=== PATIENT | male | born 2000 | race Caucasian/White ===

== ENCOUNTER 2021-03-16 01:46 | Emergency (ER) | payer MEDICAID ==
[~2021-03-16] VITALS: Ht 182.9 cm; Wt 61.4 kg
[~2021-03-16 01:46] MED LIST: METH54TA4 PO
--- NOTE | 2021-03-16 02:51 | NUR ---
On hold with poison control for 15 minutes. Hung up
--- NOTE | 2021-03-16 04:17 | NUR ---
Quincy rodarte in [facility] - 03/16/21 at 0554 by [employer] CALLING BACK. REFERENCE #[id number].
--- NOTE | 2021-03-16 05:38 | NUR ---
pts labs drawn. pt is sleeping deeply,miminal movement with lab draw. mother is at bedside. states pt with multiple attempts to overdose in the past. mother states pt always states once he has done it that it was just to get high and not to end his life. she states he is unstable and unsafe and will harm himself. i updated her that the pt has been placed on a mental health hold.
[2021-03-16 05:49] LABS: BASOPHILS % (AUTO) 0.5 % (0-1); EOSINOPHILS # (AUTO) 0.2 X10'3 (0-0.9); EOSINOPHILS % (AUTO) 2.6 % (0-6); HEMATOCRIT 44.6 % (42.0-52.0); HEMOGLOBIN 14.9 g/dl (14.0-17.9); LYMPHOCYTES # (AUTO) 2.9 X10'3 (1.1-4.8); LYMPHOCYTES % (AUTO) 35.7 % (21-51); MEAN CORPUSCULAR HEMOGLOBIN 30.3 PG (27.0-31.0); MEAN CORPUSCULAR HGB CONC 33.3 g/dL (33.0-36.5); MEAN CORPUSCULAR VOLUME 90.9 FL (78-98); MEAN PLATELET VOLUME 8.7 FL (7.4-10.4); MONOCYTES # (AUTO) 0.8 X10'3 (0-0.9); MONOCYTES % (AUTO) 10.1 % (2-12); NEUTROPHILS # (AUTO) 4.1 X10'3 (1.8-7.7); NEUTROPHILS % (AUTO) 51.1 % (42-75); PLATELET COUNT 245 X10'3 (140-440); RED BLOOD COUNT 4.91 X10'6 (4.70-6.10); RED CELL DISTRIBUTION WIDTH 13.6 % (11.5-14.5)
[2021-03-16 05:59] LABS: ALANINE AMINOTRANSFERASE 43 U/L (12-78); ALBUMIN 3.5 G/DL (3.4-5.0); ALBUMIN/GLOBULIN RATIO 1.1 (1.1-1.5); ALKALINE PHOSPHATASE 94 IU/L (20-180); ANION GAP 6 (8-16); ASPARTATE AMINO TRANSFERASE 16 U/L (10-37); BILIRUBIN,TOTAL 0.4 MG/DL (0.1-1.0); BLOOD UREA NITROGEN 14 MG/DL (7-18); BUN/CREATININE RATIO 19.7 (5.4-32.0); CALCIUM 9.2 MG/DL (8.5-10.1); CHLORIDE 105 MMOL/L (99-107); CREATININE 0.71 MG/DL (0.60-1.10); GLUCOSE 97 MG/DL (70-104); POTASSIUM 3.7 MMOL/L (3.5-5.1); SODIUM 142 MMOL/L (135-145); TOTAL PROTEIN 6.8 G/DL (6.4-8.2); eGFR > 90 ML/MIN
[2021-03-16 06:08] LABS: ETHANOL < 0.010 GM/DL (0.0-0.010)
[2021-03-16 06:09] LABS: ACETAMINOPHEN < 2.0 UG/ML (10-30)
--- NOTE | 2021-03-16 06:45 | NUR ---
pt woke up and stated whats going on. explained he is in the emergency room for his overdose. pt stated "fuck that im leaving" explained im not going to bother him if he wants to sleep and he laid back in the bed with blanket over self and fell ack asleep.
[2021-03-16] MEDS ORDERED: haloperidol lactate 5mg/ml inj IM ONE (07:45)
[2021-03-16] MEDS ORDERED: diphenhydrAMINE 50 mg/ml inj IV ONE (07:45)
[2021-03-16] MEDS ORDERED: LORazepam 2 mg/ml vial IM ONE (07:45)
--- NOTE | 2021-03-16 07:50 | NUR ---
pt woke up aggressive in room, jumping up demanding to leave. pt made aggressive movements to security and cursing at staff. demanded hes leaving now! haldol and benadryl im given to pt. pt still aggressive, pt placed in restraints.
[2021-03-16 08:17] LABS: URINE AMPHETAMINE SCREEN NEGATIVE (Neg); URINE BARBITUATE SCREEN NEGATIVE (Neg); URINE BENZODIAZEPINES SCREEN POSITIVE (Neg); URINE CANNABINOID SCREEN POSITIVE (Neg); URINE COCAINE SCREEN POSITIVE (Neg); URINE METHADONE SCREEN NEGATIVE (Neg); URINE OPIATE SCREEN NEGATIVE (Neg); URINE PHENCYCLIDINE SCREEN NEGATIVE (Neg)
[2021-03-16 08:34] LABS: CLARITY,URINE CLEAR (Clear); COLOR,URINE YELLOW (Yellow); GLUCOSE, URINE NEGATIVE (Neg); KETONES,URINE NEGATIVE (Neg); LEUKOCYTE ESTERASE ,URINE NEGATIVE (Neg); OCCULT BLOOD,URINE NEGATIVE (Neg); PROTEIN,URINE NEGATIVE (Neg); UROBILINOGEN,URINE 0.2 E.U/dL (0.2-1.0)
--- NOTE | 2021-03-16 08:34 | NUR ---
pt sleeping, restraints removed, will continue to monitor. Addendum: 03/16/21 at 0835 by JOCELYN note by enid
[2021-03-16 08:35] LABS: UA COLLECTION TYPE CLN CATCH MIDSTREAM
[2021-03-16 08:41] LABS: BACTERIA,URINE FEW /HPF (Neg); RBC,URINE 0-2 /HPF (0-2); SQUAMOUS EPITHELIAL CELL,UR FEW /LPF (FEW); WBC,URINE 0-4 /HPF (0-4)
[2021-03-16 08:43] LABS: NITRITES, URINE NEGATIVE (Neg)
--- NOTE | 2021-03-16 08:52 | NUR ---
green blanket given to pt.
--- NOTE | 2021-03-16 09:28 | NUR ---
ASSESSED PATIENT IN ER OVERFLOW BED 25 WHO WAS BROUGHT OVER BY JEWEL RN PHIL. PATIENT IS EXTREMELY DIFFICULT TO WAKE UP: STERNAL RUBBED. WITH REPEATED QUESTIONING, PATIENT WAS ABLE TO MUMBLE HIS NAME AND AND DID NOT ANSWER ANY OTHER QUESTIONS. PATIENT LYING ON RIGHT SIDE AND WOULD NOT MOVE DESPITE REPEATED REQUESTS. I ROLLED PATIENT OVER TO HIS BACK, SUPINE AND HIS BODY WAS LIKE JELLO. HIS PUPILS ARE VERY SLUGGISH AND HE BARELY HAS A STARTLE REFLEX. PATIENT VITAL SIGNS TAKEN AND PATIENT PLACED ON [employer], SPO2, BP: SR/SB WITH LOWEST HR NOTED 42, 65 AT THIS MOMENT, PALPABLE BILATERAL RADIAL PULSES, ON RA RR EVEN AND UNLABORED, VERY SHALLOW 16, SPO2 96% BP 109/57. PATIENT HAS BLANCHEABLE , BUT REDDENED SKIN ON RIGHT ARM, RIGHT SIDE AND RIGHT LEG. PATIENT PLACED ON BACK SUPINE HOB AT 30 DEGREES. POISON CONTROL TO BE CONTACTED.
--- NOTE | 2021-03-16 10:17 | NUR ---
POISON CONTROL CALLED
--- NOTE | 2021-03-16 10:18 | NUR ---
POISON CONTROL: SPOKE TO DAVI: CURRENT RECOMMENDATION: MONITOR AIRWAY, MONITOR CARDIAC RYTHMN, BP, RR SPO2 WITH Q 1 HOUR VITALS. ALSO RECOMMENDED DRAWING A LAB: CPK
--- NOTE | 2021-03-16 10:36 | NUR ---
[facility] TO SEE IF ABLE TO ADD CPK, LAB WILL CALL BACK IF UNABLE TO ADD TO PREVIOUS LABS
[2021-03-16] MEDS ORDERED: normal saline 1000ML IV soln IVB ONE (10:50)
--- NOTE | 2021-03-16 10:51 | NUR ---
DISCUSSED PATIENT'S STATUS WITH DR MALAGON INCLUDING VITALS. PER CHART NO INTAKE OR OUTPUT. ORDERS RECEIVED FOR FLUID AND TO PLACE PIV AND MONITOR CARDIAC RYTHMN, BP SPO2 PER POISON CONTROL. UPDATED MARBLEIZING MACHINE TENDERPRICILA GARCIA TO MONITOR AND LEAVE IN ER OVERFLOW. I AM ABLE TO VISUALIZE MONITOR FROM NURSES STATION AND PATIENT IS LINE OF SIGHT OF [employer].
[2021-03-16 10:52] LABS: CREATINE KINASE 63 U/L (39-308)
--- NOTE | 2021-03-16 11:15 | NUR ---
PATIENT DID NOT FLINCH WHEN IV STARTED TO LEFT UOOER ARM 20 GAUGE WITH GOOD BLOOD RETURN, 1 L NS HUNG. IV SITE LOOSELY WRAPPED IN COBAN TO PROTECT SITE
--- NOTE | 2021-03-16 12:45 | NUR ---
PATIENT SPONTANEOUSLY GOT OUT OF BED : VERY WOBBLY ON FEET, MUMBLING TO SELF UNINTELLIGBLE WORDS, ASSISTED WITH TECH BACK TO BED AND PATIENT LAID ON HIS RIGHT SIDE AND FELL ASLEEP.
--- NOTE | 2021-03-16 13:15 | NUR ---
PATIENT OFFERED MEAL: REGULAR DIET, REFUSED
--- NOTE | 2021-03-16 14:30 | NUR ---
MOTHER JB BARTON [phone], RETURNED PHONE CALL. PER MOTHER: PATIENT WAS AT [facility] IN [place] AND LEFT 1 WEEK AGO AND HAS BEEN COUCH SURFING AND USING STREET DRUGS INCLUDING XANAX. PATIENT HAS AN ON AGAIN /OFF AGAIN RELATIONSHIP WITH HIS GIRLFRIEND GEORGE ELKINS. PER MOTHER, PATIENT TOLD GEORGE ELKINS THAT "LIFE IS TOO HARD" AND OTHER ALLEGEDLY SUICIDAL IDEATIONS. GIRLFRIEND CALLED PATIENT'S AUNT WHO BROUGHT HIM HERE. PER MOTHER PATIENT IS WORKING WITH [facility] TO GET INTO a "PROGRAM" FOR HIS MENTAL HEALTH ISSUES OF DEPRESSION, ANXIETY, ADHD, AND ON THE [employer]. HIS MOTHER DOES NOT KNOW THE NAME OF THE PROVIDER AT [facility]. MOTHER REPORTS THAT 2 YEARS AGO HER SON OVERDOSED ON XANAX AND HE WAS OUT OF CONTROL MANIC IN THE STREETS AFTER SLEEPING FOR A PERIOD OF TIME.
--- NOTE | 2021-03-16 14:31 | NUR ---
PATIENT'S MOTHER IS WILLING TO TAKE PATIENT TO HER HOME IF DISCHARGED FROM THE ER
--- NOTE | 2021-03-16 14:33 | NUR ---
PATIENT LYING ON BACK RR EVEN AND UNLABORED,SHALLOW, CONTINUES ON MONITOR AND WILL CONTINUE TO MONITOR
--- NOTE | 2021-03-16 14:51 | NUR ---
PATIENT JUST SAT UP AND STARTED EATING HIS FOOD. AVRIL TAYLOR ASSITED PATIENT WITH USING HIS URINAL. 200 ML URINE OUT CLEAR DARK YELLOW SPILLED SOME TECH ASSISTED WITH PERICARE AND NEW GREEN SCRUBS PUT ON. UNDERWEAR REMOVED, PLACED IN LABELED BAG, AND AVRIL TAYLOR PLACED BAG WITH HIS OTHER BELONGINGS.
--- NOTE | 2021-03-16 15:12 | NUR ---
Pt woke up asking for his "bitch" I asked him who that was? He stated that it was his girlfiriend. I told him we do not refer to women that way. I he started yelling that we was leaving and that he wanted to get high and that was it.
--- NOTE | 2021-03-16 15:33 | NUR ---
Pt was verbally abusive to nurse, calling her a "nigga" and he would "fuck" her and security up. He is from [place] and he isn't scared of anything. He stated again he just wants to leave to see his "kid" and he only took pills to get high. He then went into bathroom slammed door and toilet seat down. Got in nurses face but then went and sat on bed. He is currently talking to himself on his bed with security at standby
--- NOTE | 2021-03-16 15:56 | NUR ---
note that patient has a rigth upper arm sl, not a left PATIETN CURRENTLY LYING IN BED WITH EYES CLOSED, RR EVEN AND UNLABORED, DEPTH WNL
--- NOTE | 2021-03-16 16:30 | NUR ---
PATIENT LYING ON HIS RIGHT SIDE WITH EYES CLOSED RR BRADEN, UNLABORED AND NORMAL DEPTH. SPOKE AGAIN IN PERSON WITH [facility] REGARDING DISCHARGE PLAN. PATIENT RIPPED OFF ALL MONITORING EARLIER AND REFUSED TO HAVE IT REPLACED.
--- NOTE | 2021-03-16 16:56 | NUR ---
CALLED MOTHER AND LEFT MESSAGE. MOTHER CALLED RIGHT BACK. I HANDED THE PHONE TO AXEL [facility]. PRIOR TO CALLING MOTHER, AXEL AND I TALKED WITH PATIENT
--- NOTE | 2021-03-16 16:58 | NUR ---
WITH [facility], PATIENT DENIED SI/HI TOOK THE STREET DRUGS TO "GET HIGH"
--- NOTE | 2021-03-16 17:05 | NUR ---
POISON CONTROL: SPOKE TO DAVI FROM POISON CONTROL. OK TO DISCONTIUNE MONITORING FROM POISON CONTROL'S PERSPECTIVE SINCE PATIENT HAS PERKED UP. INFORMED DAVI THAT THE XANAX THE PATIENT INGESTED WAS "STREET" XNANX AND THAT NO NARCAN WAS GIVEN PER MY KNOWLEDGE
--- NOTE | 2021-03-16 18:15 | NUR ---
STILL AWAITING WORD FROM [facility] WHETHER NEW HOLD IS BEING PLACED OR NOT
--- NOTE | 2021-03-16 19:00 | NUR ---
Received pt sleeping in bed without signs of distress. Pt unarrousable for dinner.
--- NOTE | 2021-03-16 21:00 | NUR ---
Pt just awoke and came to nurse's station to ask for the phone and now is being evaluated by [facility] and is getting a little irritated.
--- NOTE | 2021-03-16 23:00 | NUR ---
Pt called his mother and was demanding for her to pick him up, seemingly not understanding the circumstances. Pt began cursing and getting loud. Security arrived and expectations explained to the pt. Pt was able to calm down and currently is sleeping without signs of distress.
--- NOTE | 2021-03-17 01:00 | NUR ---
Pt sleeping calmly without signs of distress.
--- NOTE | 2021-03-17 03:00 | NUR ---
Pt asleep in bed without signs of distress.
--- NOTE | 2021-03-17 05:00 | NUR ---
Pt asleep in bed without signs of distress.
--- NOTE | 2021-03-17 05:47 | NUR ---
PT REFUSED VITALS AT THIS TIME
--- NOTE | 2021-03-17 06:30 | NUR ---
Pt sleeping on back. Respirations unlabored. NAD
--- NOTE | 2021-03-17 07:30 | NUR ---
Pt sleeping. Respirations unlabored. NAD
--- NOTE | 2021-03-17 08:27 | NUR ---
Anand from [facility] at pt's bedside assessing pt.
[2021-03-17 08:45] VITALS: BP 124/65
--- NOTE | 2021-03-17 08:53 | NUR ---
Anand from [facility] is releasing the pt with a safety plan. Pt is calling for a ride.
== END 2021-03-17 09:23 | disposition home or self-care (01) ==
LOC: ER 01:46
DX: R45.851 Suicidal ideations (principal); F19.10 Other psychoactive substance abuse, uncomplicated; F12.90 Cannabis use, unspecified, uncomplicated; Z79.899 Other long term (current) drug therapy
CPT/HCPCS: 36415; 80053; 80305; 80320; 80329; 81001; 82550; 84439; 84443; 85025; 96361; 96372; 96374; 99285; J1200; J1630; J7030

== ENCOUNTER 2025-01-30 07:44 | Emergency (ER) | payer MEDICAID ==
[~2025-01-30] VITALS: Ht 182.9 cm; Wt 62.0 kg
[2025-01-30 07:47] VITALS: BP 140/77; PULSE 150; TEMP 102.8; O2SAT 96
[2025-01-30] MEDS: ketorolac trometh 15mg/ml vial 15 MG/ML ML IM ONE (08:52)
[2025-01-30] MEDS: acetaminophen 325mg tablet PO ONE (08:52)
[2025-01-30 09:03] LABS: BASOPHILS % (AUTO) 0.3 % (0-1); EOSINOPHILS # (AUTO) 0.1 X10'3 (0-0.9); EOSINOPHILS % (AUTO) 0.4 % (0-6); HEMATOCRIT 36.5 % (42.0-52.0); HEMOGLOBIN 12.3 g/dl (14.0-17.9); LYMPHOCYTES # (AUTO) 0.9 X10'3 (1.1-4.8); LYMPHOCYTES % (AUTO) 5.4 % (21-51); MEAN CORPUSCULAR HEMOGLOBIN 28.3 PG (27.0-31.0); MEAN CORPUSCULAR HGB CONC 33.7 g/dL (33.0-36.5); MEAN CORPUSCULAR VOLUME 83.8 FL (78-98); MEAN PLATELET VOLUME 8.6 FL (7.4-10.4); MONOCYTES # (AUTO) 1.9 X10'3 (0-0.9); MONOCYTES % (AUTO) 11.5 % (2-12); NEUTROPHILS # (AUTO) 13.6 X10'3 (1.8-7.7); NEUTROPHILS % (AUTO) 82.4 % (42-75); PLATELET COUNT 300 X10'3 (140-440); RED BLOOD COUNT 4.36 X10'6 (4.70-6.10); RED CELL DISTRIBUTION WIDTH 13.7 % (11.5-14.5); WHITE BLOOD COUNT 16.5 X10'3 (4.5-11.0)
[2025-01-30 09:12] LABS: ALBUMIN 3.1 G/DL (3.4-5.0); ANION GAP 8 (8-16); BLOOD UREA NITROGEN 16 MG/DL (7-18); BUN/CREATININE RATIO 21.6 (10.0-20.0); CALCIUM 8.9 MG/DL (8.5-10.1); CHLORIDE 96 MMOL/L (99-107); CREATININE 0.74 MG/DL (0.60-1.10); GLUCOSE 103 MG/DL (70-104); POTASSIUM 3.8 MMOL/L (3.5-5.1); SODIUM 133 MMOL/L (135-145); TOTAL CARBON DIOXIDE 29.5 MMOL/L (24-32); eCRCL 135 ML/MIN; eGFR > 90 ML/MIN
[2025-01-30] MEDS ORDERED: amox tr/potassium clavulanate 875/125mg TAB PO ONE (09:25)
[2025-01-30] MEDS: CefTRIAXone 2gm/D5W 50ml BAG 50 ML IV ONE (09:25)
[2025-01-30] MEDS ORDERED: DOXY100C43 PO (09:27)
[2025-01-30] MEDS ORDERED: AMOX-580 PO (09:27)
[2025-01-30] MEDS: amox tr/potassium clavulanate 875/125mg TAB PO ONE (09:38)
[2025-01-30] MEDS: DOXYCYCLINE 100MG CAPSULE PO STA (09:38)
== END 2025-01-30 09:42 | disposition home or self-care (01) ==
LOC: ER 07:44
DX: J18.9 Pneumonia, unspecified organism (principal); F12.90 Cannabis use, unspecified, uncomplicated; F15.90 Other stimulant use, unspecified, uncomplicated; Z79.2 Long term (current) use of antibiotics; Z79.899 Other long term (current) drug therapy
CPT/HCPCS: 36415; 71045; 80048; 84145; 85025; 87502; 87503; 99284; J1885

== ENCOUNTER 2025-02-01 09:43 | Emergency (ER) | payer MEDICAID ==
[~2025-02-01] VITALS: Ht 185.4 cm; Wt 61.4 kg
[~2025-02-01 09:43] MED LIST changes: +AMOX-580 PO; +DOXY100C43 PO
[2025-02-01 11:37] VITALS: BP 113/65; PULSE 72; O2SAT 98
[2025-02-01 12:00] VITALS: RESP 18
[2025-02-01 13:00] VITALS: TEMP 98.5
== END 2025-02-01 13:04 | disposition left against medical advice (07) ==
LOC: ER 09:43
DX: J18.9 Pneumonia, unspecified organism (principal); F12.90 Cannabis use, unspecified, uncomplicated; F15.90 Other stimulant use, unspecified, uncomplicated; F19.90 Other psychoactive substance use, unspecified, uncomplicated; Z79.899 Other long term (current) drug therapy
CPT/HCPCS: 99281

== ENCOUNTER 2025-02-01 18:51 | Inpatient (IN) | payer MEDICAID ==
[~2025-02-01] VITALS: Ht 185.4 cm; Wt 63.6 kg
[2025-02-01 19:57] LABS: BASOPHILS % (AUTO) 0.3 % (0-1); EOSINOPHILS # (AUTO) 0.5 X10'3 (0-0.9); HEMATOCRIT 36.1 % (42.0-52.0); HEMOGLOBIN 12.1 g/dl (14.0-17.9); LYMPHOCYTES # (AUTO) 1.7 X10'3 (1.1-4.8); LYMPHOCYTES % (AUTO) 18.3 % (21-51); MEAN CORPUSCULAR HEMOGLOBIN 28.4 PG (27.0-31.0); MEAN CORPUSCULAR HGB CONC 33.5 g/dL (33.0-36.5); MEAN CORPUSCULAR VOLUME 84.8 FL (78-98); MEAN PLATELET VOLUME 8.1 FL (7.4-10.4); MONOCYTES # (AUTO) 0.8 X10'3 (0-0.9); NEUTROPHILS # (AUTO) 6.3 X10'3 (1.8-7.7); NEUTROPHILS % (AUTO) 67.4 % (42-75); PLATELET COUNT 381 X10'3 (140-440); RED BLOOD COUNT 4.26 X10'6 (4.70-6.10); RED CELL DISTRIBUTION WIDTH 14.2 % (11.5-14.5); WHITE BLOOD COUNT 9.4 X10'3 (4.5-11.0)
[2025-02-01 20:17] LABS: ALBUMIN 2.5 G/DL (3.4-5.0); ANION GAP 7 (8-16); BLOOD UREA NITROGEN 6 MG/DL (7-18); BUN/CREATININE RATIO 11.1 (10.0-20.0); CALCIUM 8.7 MG/DL (8.5-10.1); CHLORIDE 102 MMOL/L (99-107); CREATININE 0.54 MG/DL (0.60-1.10); GLUCOSE 91 MG/DL (70-104); POTASSIUM 3.8 MMOL/L (3.5-5.1); PRO BRAIN NATRIURETIC PEPTIDE 387 PG/ML (0-125); SODIUM 142 MMOL/L (135-145); TOTAL CARBON DIOXIDE 33.1 MMOL/L (24-32); eCRCL 190 ML/MIN; eGFR > 90 ML/MIN
[2025-02-01] MEDS: normal saline 1000ML IV soln IVB ONE (21:36)
[2025-02-01] MEDS: acetaminophen 325mg tablet PO ONE (21:41)
[2025-02-01] MEDS: HYDROmorphone 1 mg/ml syringe IV ONE (22:00)
[2025-02-01 22:10] LABS: C-REACTIVE PROTEIN 20.63 MG/DL (0.0-0.5)
[2025-02-01] MEDS: ketorolac trometh 15mg/ml vial 15 MG/ML ML IV ONE (22:14)
[2025-02-01] MEDS: CefTRIAXone 2gm/D5W 50ml BAG 50 ML IV ONE (22:15)
[2025-02-01] MEDS: levoFLOXACIN-Levaquin 750MG/D5 150 ML IV ONE (22:17)
[2025-02-01] MEDS: LORazepam 2 mg/ml vial IV ONE (22:22)
[2025-02-01 22:31] LABS: HIV ANTIBODY 1&2 RAPID NON-REACTIVE (Neg)
[2025-02-02] VITALS (9 sets, daily range): BP systolic 104–122; BP diastolic 57–76; PULSE 75–96; RESP 16–22; TEMP 97.7–98.9; O2SAT 96–99
[2025-02-02] MEDS ORDERED: magnesium sulf-water 2g/50mL 50 ML IV PRN (03:15)
[2025-02-02] MEDS ORDERED: mag hydrox/Alum hydrox/simeth 30ml oral suspension PO PRN (03:15)
[2025-02-02] MEDS ORDERED: magnesium sulf-water 4G/100mL 100 ML IV PRN (03:15)
[2025-02-02] MEDS ORDERED: potassium Cl 40MEQ/1/2NS 520ml 520 ML IV PRN (03:15)
[2025-02-02] MEDS ORDERED: potassium Cl 20 mEq SR tablet PO PRN ×2 (03:15)
[2025-02-02] MEDS ORDERED: magnesium hydroxide 30ml (MOM) UD suspension PO PRN (03:15)
[2025-02-02] MEDS ORDERED: magnesium Cl slow-release 64mg tablet PO PRN (03:15)
[2025-02-02] MEDS: normal saline 1000ml 1,000 ML IV SCH (04:57)
[2025-02-02] MEDS: acetaminophen 325mg tablet PO PRN (04:57)
[2025-02-02] MEDS ORDERED: ipratropium/albuterol 3ml nebule NEB PRN (06:20)
[2025-02-02] MEDS: docusate sod 100mg capsule PO SCH (08:00)
[2025-02-02] MEDS: K and/or MAG REPLACEMENT MC SCH (08:00)
[2025-02-02 09:32] LABS: BASOPHILS # (AUTO) 0.1 X10'3 (0-0.2); BASOPHILS % (AUTO) 0.7 % (0-1); EOSINOPHILS # (AUTO) 0.5 X10'3 (0-0.9); HEMATOCRIT 34.3 % (42.0-52.0); HEMOGLOBIN 11.4 g/dl (14.0-17.9); LYMPHOCYTES # (AUTO) 1.6 X10'3 (1.1-4.8); LYMPHOCYTES % (AUTO) 21.8 % (21-51); MEAN CORPUSCULAR HEMOGLOBIN 28.2 PG (27.0-31.0); MEAN CORPUSCULAR HGB CONC 33.3 g/dL (33.0-36.5); MEAN CORPUSCULAR VOLUME 84.9 FL (78-98); MEAN PLATELET VOLUME 8.4 FL (7.4-10.4); MONOCYTES # (AUTO) 0.7 X10'3 (0-0.9); MONOCYTES % (AUTO) 9.4 % (2-12); NEUTROPHILS # (AUTO) 4.4 X10'3 (1.8-7.7); NEUTROPHILS % (AUTO) 61.1 % (42-75); PLATELET COUNT 371 X10'3 (140-440); RED BLOOD COUNT 4.04 X10'6 (4.70-6.10); RED CELL DISTRIBUTION WIDTH 14.7 % (11.5-14.5); WHITE BLOOD COUNT 7.2 X10'3 (4.5-11.0)
[2025-02-02 09:53] LABS: ALANINE AMINOTRANSFERASE 30 U/L (12-78); ALBUMIN/GLOBULIN RATIO 0.4 (1.1-1.5); ALKALINE PHOSPHATASE 97 IU/L (46-116); ANION GAP 7 (8-16); ASPARTATE AMINO TRANSFERASE 20 U/L (10-37); BILIRUBIN,TOTAL 0.3 MG/DL (0.1-1.0); BLOOD UREA NITROGEN 10 MG/DL (7-18); BUN/CREATININE RATIO 14.9 (10.0-20.0); CALCIUM 8.5 MG/DL (8.5-10.1); CHLORIDE 105 MMOL/L (99-107); CREATININE 0.67 MG/DL (0.60-1.10); GLUCOSE 99 MG/DL (70-104); POTASSIUM 3.8 MMOL/L (3.5-5.1); SODIUM 140 MMOL/L (135-145); TOTAL CARBON DIOXIDE 28.1 MMOL/L (24-32); TOTAL PROTEIN 6.5 G/DL (6.4-8.2); eCRCL 153 ML/MIN; eGFR > 90 ML/MIN
[2025-02-02] MEDS ORDERED: morphine 2 MG/ML inj. syringe IV PRN (10:20)
[2025-02-02] MEDS: methylPREDNISolone sod succ 125mg/2ml vial IV SCH (10:22)
[2025-02-02] MEDS: CefTRIAXone/D5W-Rocephin 1gm 50 ML IV SCH (10:22)
[2025-02-02] MEDS: azithromycin/NS 500mg/250ml 250 ML IV SCH (10:23)
[2025-02-02] MEDS: morphine 2 MG/ML inj. syringe IV PRN (10:28)
[2025-02-02] MEDS: morphine 2 MG/ML inj. syringe IV STA (12:33)
[2025-02-02 13:31] LABS: BILIRUBIN,URINE NEGATIVE (Neg); CLARITY,URINE CLEAR (Clear); COLOR,URINE STRAW (Yellow); GLUCOSE, URINE NEGATIVE (Neg); KETONES,URINE NEGATIVE (Neg); LEUKOCYTE ESTERASE ,URINE NEGATIVE (Neg); NITRITES, URINE NEGATIVE (Neg); OCCULT BLOOD,URINE NEGATIVE (Neg); PROTEIN,URINE NEGATIVE (Neg); UROBILINOGEN,URINE 0.2 E.U/dL (0.2-1.0)
[2025-02-02 13:34] LABS: UA COLLECTION TYPE NON-SPECIFIED
[2025-02-02 13:43] LABS: URINE AMPHETAMINE SCREEN NEGATIVE (Neg); URINE BARBITUATE SCREEN NEGATIVE (Neg); URINE BENZODIAZEPINES SCREEN NEGATIVE (Neg); URINE CANNABINOID SCREEN POSITIVE (Neg); URINE COCAINE SCREEN NEGATIVE (Neg); URINE METHADONE SCREEN NEGATIVE (Neg); URINE OPIATE SCREEN POSITIVE (Neg); URINE PHENCYCLIDINE SCREEN NEGATIVE (Neg)
[2025-02-02] MEDS: nicotine 21mg patch - 24 hr TD SCH (14:13)
[2025-02-02] MEDS: LORazepam 1 MG tablet PO PRN (17:18)
[2025-02-02] MEDS: heparin, porcine 5000 units/ml vial SQ SCH (19:24)
[2025-02-03] MEDS ORDERED: naloxone 0.4 mg/ml inj IV PRN (01:50)
[2025-02-03 06:00] VITALS: BP 121/74; PULSE 83; RESP 16; TEMP 97.6; O2SAT 98
[2025-02-03 08:00] VITALS: RESP 16; O2SAT 98
[2025-02-03 08:42] LABS: BASOPHILS # (AUTO) 0.1 X10'3 (0-0.2); BASOPHILS % (AUTO) 0.6 % (0-1); EOSINOPHILS % (AUTO) 0.2 % (0-6); HEMATOCRIT 34.1 % (42.0-52.0); HEMOGLOBIN 11.4 g/dl (14.0-17.9); LYMPHOCYTES # (AUTO) 1.5 X10'3 (1.1-4.8); LYMPHOCYTES % (AUTO) 14.2 % (21-51); MEAN CORPUSCULAR HEMOGLOBIN 28.4 PG (27.0-31.0); MEAN CORPUSCULAR HGB CONC 33.5 g/dL (33.0-36.5); MEAN CORPUSCULAR VOLUME 84.6 FL (78-98); MEAN PLATELET VOLUME 7.8 FL (7.4-10.4); MONOCYTES # (AUTO) 0.9 X10'3 (0-0.9); NEUTROPHILS # (AUTO) 8.4 X10'3 (1.8-7.7); PLATELET COUNT 461 X10'3 (140-440); RED BLOOD COUNT 4.04 X10'6 (4.70-6.10); RED CELL DISTRIBUTION WIDTH 14.4 % (11.5-14.5); WHITE BLOOD COUNT 10.9 X10'3 (4.5-11.0)
[2025-02-03 08:59] LABS: ALANINE AMINOTRANSFERASE 153 U/L (12-78); ALBUMIN 2.3 G/DL (3.4-5.0); ALBUMIN/GLOBULIN RATIO 0.5 (1.1-1.5); ALKALINE PHOSPHATASE 105 IU/L (46-116); ANION GAP 9 (8-16); ASPARTATE AMINO TRANSFERASE 124 U/L (10-37); BILIRUBIN,TOTAL 0.2 MG/DL (0.1-1.0); BLOOD UREA NITROGEN 14 MG/DL (7-18); BUN/CREATININE RATIO 21.9 (10.0-20.0); CHLORIDE 106 MMOL/L (99-107); CHOL/HDL RATIO 3.8 (0.00-4.99); CHOLESTEROL 98 MG/DL (0-200); CREATININE 0.64 MG/DL (0.60-1.10); GLUCOSE 112 MG/DL (70-104); HDL CHOLESTEROL 26 MG/DL (35-60); LDL CHOLESTEROL 65 MG/DL (50-100); MAGNESIUM 1.8 MG/DL (1.5-2.4); POTASSIUM 3.9 MMOL/L (3.5-5.1); SODIUM 142 MMOL/L (135-145); TOTAL CARBON DIOXIDE 26.9 MMOL/L (24-32); TOTAL PROTEIN 7.3 G/DL (6.4-8.2); TRIGLYCERIDES 61 MG/DL (20-135); eCRCL 160 ML/MIN; eGFR > 90 ML/MIN
[2025-02-03] MEDS: ondansetron/PF 4mg/2ml inj IV PRN (09:58)
[2025-02-03 10:00] VITALS: BP 116/69; PULSE 88; RESP 16; TEMP 98.6; O2SAT 100
[2025-02-03 15:44] VITALS: PULSE 88; RESP 18; O2SAT 98
[2025-02-03] MEDS ORDERED: DOCU100C40 PO (16:44)
[2025-02-03 18:00] VITALS: BP 111/67; PULSE 82; RESP 18; O2SAT 93
[2025-02-03 20:00] VITALS: RESP 18; O2SAT 93
[2025-02-04] MEDS: ondansetron 4mg rapidly disintigrating tab PO PRN (00:32)
[2025-02-04] MEDS: HYDROcodone/acetaminophen 5mg/325mg tablet PO PRN (00:32)
[2025-02-04 08:00] VITALS: RESP 16
[2025-02-04 08:13] LABS: ALANINE AMINOTRANSFERASE 212 U/L (12-78); ALBUMIN 2.6 G/DL (3.4-5.0); ALBUMIN/GLOBULIN RATIO 0.5 (1.1-1.5); ALKALINE PHOSPHATASE 114 IU/L (46-116); ANION GAP 6 (8-16); ASPARTATE AMINO TRANSFERASE 63 U/L (10-37); BILIRUBIN,TOTAL 0.3 MG/DL (0.1-1.0); BLOOD UREA NITROGEN 17 MG/DL (7-18); CALCIUM 9.3 MG/DL (8.5-10.1); CHLORIDE 105 MMOL/L (99-107); CREATININE 0.74 MG/DL (0.60-1.10); GLUCOSE 110 MG/DL (70-104); POTASSIUM 4.3 MMOL/L (3.5-5.1); SODIUM 140 MMOL/L (135-145); TOTAL CARBON DIOXIDE 29.3 MMOL/L (24-32); TOTAL PROTEIN 7.6 G/DL (6.4-8.2); eCRCL 139 ML/MIN; eGFR > 90 ML/MIN
[2025-02-04 08:15] LABS: BASOPHILS # (AUTO) 0.1 X10'3 (0-0.2); BASOPHILS % (AUTO) 0.7 % (0-1); EOSINOPHILS # (AUTO) 0.1 X10'3 (0-0.9); EOSINOPHILS % (AUTO) 0.7 % (0-6); HEMATOCRIT 37.2 % (42.0-52.0); HEMOGLOBIN 12.4 g/dl (14.0-17.9); LYMPHOCYTES # (AUTO) 2.4 X10'3 (1.1-4.8); LYMPHOCYTES % (AUTO) 18.6 % (21-51); MEAN CORPUSCULAR HEMOGLOBIN 28.3 PG (27.0-31.0); MEAN CORPUSCULAR HGB CONC 33.4 g/dL (33.0-36.5); MEAN CORPUSCULAR VOLUME 84.7 FL (78-98); MEAN PLATELET VOLUME 7.8 FL (7.4-10.4); MONOCYTES # (AUTO) 1.2 X10'3 (0-0.9); MONOCYTES % (AUTO) 9.8 % (2-12); NEUTROPHILS # (AUTO) 8.9 X10'3 (1.8-7.7); NEUTROPHILS % (AUTO) 70.2 % (42-75); PLATELET COUNT 562 X10'3 (140-440); RED BLOOD COUNT 4.39 X10'6 (4.70-6.10); RED CELL DISTRIBUTION WIDTH 14.3 % (11.5-14.5); WHITE BLOOD COUNT 12.7 X10'3 (4.5-11.0)
[2025-02-04 10:00] VITALS: BP 119/71; PULSE 57; RESP 14; TEMP 97; O2SAT 100
[2025-02-04] MEDS ORDERED: morphine 2 MG/ML inj. syringe IV PRN (10:40)
[2025-02-04] MEDS: morphine 2 MG/ML inj. syringe IV PRN (11:03)
[2025-02-04 18:00] VITALS: BP 100/60; PULSE 98; RESP 13; TEMP 98.3; O2SAT 99
[2025-02-04 20:00] VITALS: RESP 13; O2SAT 99
[2025-02-04 22:00] VITALS: BP 110/67; PULSE 90; RESP 16; TEMP 98; O2SAT 98
[2025-02-05] MEDS: LORazepam 1 MG tablet PO PRN (00:03)
[2025-02-05 06:00] VITALS: BP 130/75; PULSE 88; RESP 16; TEMP 98.7; O2SAT 95
[2025-02-05 06:50] LABS: BASOPHILS # (AUTO) 0.1 X10'3 (0-0.2); EOSINOPHILS # (AUTO) 0.2 X10'3 (0-0.9); EOSINOPHILS % (AUTO) 1.5 % (0-6); HEMATOCRIT 35.8 % (42.0-52.0); HEMOGLOBIN 12.1 g/dl (14.0-17.9); LYMPHOCYTES # (AUTO) 2.7 X10'3 (1.1-4.8); MEAN CORPUSCULAR HEMOGLOBIN 28.4 PG (27.0-31.0); MEAN CORPUSCULAR HGB CONC 33.7 g/dL (33.0-36.5); MEAN CORPUSCULAR VOLUME 84.5 FL (78-98); MEAN PLATELET VOLUME 7.3 FL (7.4-10.4); MONOCYTES % (AUTO) 9.1 % (2-12); NEUTROPHILS # (AUTO) 7.3 X10'3 (1.8-7.7); NEUTROPHILS % (AUTO) 64.4 % (42-75); PLATELET COUNT 523 X10'3 (140-440); RED BLOOD COUNT 4.24 X10'6 (4.70-6.10); RED CELL DISTRIBUTION WIDTH 14.4 % (11.5-14.5); WHITE BLOOD COUNT 11.3 X10'3 (4.5-11.0)
[2025-02-05 07:14] LABS: ALANINE AMINOTRANSFERASE 288 U/L (12-78); ALBUMIN 2.3 G/DL (3.4-5.0); ALBUMIN/GLOBULIN RATIO 0.5 (1.1-1.5); ALKALINE PHOSPHATASE 112 IU/L (46-116); ANION GAP 7 (8-16); ASPARTATE AMINO TRANSFERASE 112 U/L (10-37); BILIRUBIN,TOTAL 0.4 MG/DL (0.1-1.0); BLOOD UREA NITROGEN 15 MG/DL (7-18); BUN/CREATININE RATIO 22.4 (10.0-20.0); CALCIUM 8.6 MG/DL (8.5-10.1); CHLORIDE 108 MMOL/L (99-107); CREATININE 0.67 MG/DL (0.60-1.10); GLUCOSE 97 MG/DL (70-104); MAGNESIUM 2.1 MG/DL (1.5-2.4); POTASSIUM 4.2 MMOL/L (3.5-5.1); SODIUM 142 MMOL/L (135-145); TOTAL CARBON DIOXIDE 27.2 MMOL/L (24-32); TOTAL PROTEIN 6.7 G/DL (6.4-8.2); eCRCL 153 ML/MIN; eGFR > 90 ML/MIN
[2025-02-05 10:00] VITALS: BP 100/51; PULSE 67; RESP 17; TEMP 98.8; O2SAT 98
[2025-02-05] MEDS ORDERED: LEVO750T68 PO (11:09)
[2025-02-05] MEDS ORDERED: NICO-687 TD (11:09)
[2025-02-05 11:50] VITALS: RESP 17; O2SAT 98
== END 2025-02-05 12:55 | disposition home or self-care (01) | DRG 137 ==
LOC: ER 18:52 → ED HOLD 23:20 → ORTHO 4S 02-02 01:00
PROVIDERS: ADMIT Surgery Surgical Critical Care; ATTEND Nurse Practitioner Family
DX: J15.69 Pneumonia due to other Gram-negative bacteria (principal); D75.839 Thrombocytosis, unspecified; R91.8 Other nonspecific abnormal finding of lung field; Z20.822 Contact with and (suspected) exposure to COVID-19; J15.9 Unspecified bacterial pneumonia; F19.10 Other psychoactive substance abuse, uncomplicated; Z79.899 Other long term (current) drug therapy
CPT/HCPCS: 36415; 71046; 71250; 80048; 80053; 80061; 80305; 81003; 83605; 83735; 83880; 84145; 85025; 86140; 86703; 87040; 87081; 87502; 87503; 87811; 93005; 93306; 93970; 94640; 94760; 96361; 96365; 96368; 96375; 99285; G0378; J0456; J0696; J1885; J1956; J2060; J2270; J2405; J2919; J7030